=== PATIENT | male | born 1980 | race Asian ===

== ENCOUNTER 2023-04-12 08:47 | Emergency (ER) | payer MEDICAID, MEDICARE, OTHER ==
[~2023-04-12] VITALS: Ht 180.3 cm; Wt 91.0 kg
[2023-04-12] MEDS ORDERED: CITA-144 PO (08:58)
[2023-04-12 09:03] VITALS: TEMP 98.3
[2023-04-12] MEDS ORDERED: KETOROLAC TROMETHAMINE 30 MG/ML VIAL IM ONE (09:30)
[2023-04-12] MEDS ORDERED: TraMADol HCL 50 MG TABLET PO ONE (09:30)
[2023-04-12] MEDS ORDERED: TRAM-559 PO (10:05)
[2023-04-12] MEDS ORDERED: HYDR-4723 PO (10:27)
[2023-04-12 10:28] VITALS: BP 140/93; PULSE 82; RESP 16
== END 2023-04-12 10:36 | disposition home or self-care (01) ==
LOC: EMS 08:58
DX: M25.532 Pain in left wrist (principal); J45.909 Unspecified asthma, uncomplicated
CPT/HCPCS: 99283; 96372; J1885